=== PATIENT | male | born 1985 | race African-American/Black ===

== ENCOUNTER 2017-01-19 09:01 | Emergency (ER) | payer OTHER ==
[2017-01-19 09:46] LABS: ADD DIFF? NO; ADD MORPH? NO; ADD SCAN? NO; ATYPICAL LYMPHOCYTE FLAG 10 (0-99); FRAGMENT RBC FLAG 0 (0-99); HEMATOCRIT 47.3 % (40.0-51.0); HEMOGLOBIN 16.7 g/dL (13.7-17.5); LEFT SHIFT FLG 0 (0-99); LIPEMIA HEMOLYSIS FLAG 90 (0-99); MEAN CELL HEMOGLOBIN 28.5 pg (27.9-34.1); MEAN CELL HEMOGLOBIN CONCENTR. 35.3 g/dL (32.4-36.7); MEAN CELL VOLUME 80.9 fL (81.5-99.8); MEAN PLATELET VOLUME 8.8 fL (8.7-11.7); PLATELET CLUMPS FLAG 10 (0-99); PLATELET COUNT 228 10^3/uL (150-400); RED BLOOD CELL COUNT 5.85 10^6/uL (4.40-6.38); RED CELL DISTRIBUTION WIDTH 12.1 % (11.5-15.2)
[2017-01-19 10:09] LABS: ANION GAP 13 mEq/L (8-16); CALCIUM 9.9 mg/dL (8.5-10.4); CARBON DIOXIDE 26 mEq/l (22-31); CHLORIDE 104 mEq/L (97-110); CREATININE 1.1 mg/dL (0.7-1.3); ETHANOL SERUM < 10 mg/dL (0-10); GLOMERULAR FILTRATION RATE > 60; GLUCOSE 82 mg/dL (70-100); POTASSIUM 4.1 mEq/L (3.5-5.2); SODIUM 143 mEq/L (134-144)
[2017-01-19 10:18] VITALS: RESP 16; TEMP 97.9
--- NOTE | 2017-01-19 10:50 | EDPHY ---
H & P Smoking Status: Never smoked Time Seen by Provider: 01/19/17 10:47 HPI/ROS: HPI: 31-year-old male presents to emergency department with chief concern increased anxiety. Has a diagnosis of bipolar 2 disorder and only recently began taking his Lamictal, Risperdal, and Depakote as prescribed. Reports increased anxiety as a result of stressful family and life situations. He denies suicidal or homicidal ideation. He denies visual or auditory hallucination. He occasionally drinks alcohol but uses no other drugs. Denies fever, chills, shortness of breath, chest pain, nausea or vomiting. Has an appointment on Thursday with his psychologist Dr. Koo ROS:10 point review of systems is negative other than as stated in HPI (Griselda Zelaya) Past Medical/Surgical History: Bipolar 2 disorder (Griselda Zelaya) Constitutional: Initial Vital Signs Temperature (C) 36.4 C 01/19/17 09:04 Heart Rate 89 01/19/17 09:04 Respiratory Rate 18 01/19/17 09:04 Blood Pressure 128/90 H 01/19/17 09:04 O2 Sat (%) 99 01/19/17 09:04 O2 Delivery Mode Room Air Allergies/Adverse Reactions: No Known Allergies Allergy (Verified 01/19/17 09:07) Home Medications: Medication Instructions Recorded Divalproex [Depakote] 125 mg PO .DAILY 12/15/11 Lamictal 11/08/12 Risperdal 11/08/12 Lorazepam [Ativan] 1 mg PO BID PRN #4 tablet 01/19/17 Medical Decision Making ED Course/Re-evaluation: 31-year-old male who has no suicidal homicidal E ideation, and no visual or auditory hallucinations presents with increased anxiety. He has an appointment later this week with his psychologist. He is also in touch with his psychiatrist Dr. Velasco. He is comfortable following up as an outpatient. He agrees that the emergency department setting is making him more anxious, and he would prefer to follow up outpatient. There is no reason to keep him here for an evaluation in the emergency department. He is stable for discharge. ( Griselda Zelaya) Other Provider: The patient wasevaluatedand managed by themcolevel provider. My co- signature indicates that Marty reviewed this chart and I agree with the findings and plan of care asdocumented. I am the secondary supervising physician. (Kanika Maurer) - Data Points Laboratory Results: Laboratory Results 01/19/17 09:30 01/19/17 09:30 Departure - Departure Disposition: Home, Routine, Self-Care Clinical Impression: Anxiety Condition: Good Instructions: Anxiety (ED) Additional Instructions: Plan: Go to [facility] upon leaving the emergency department for evaluation for your anxiety Follow up with your therapist on Thursday as scheduled Take your medications as prescribed by your psychiatrist Call your psychiatrist Dr. Velasco and request a follow-up appointment this week If you developed any thoughts of hurting yourself or others or any other concerning symptoms please return promptly to emergency room as discussed May use 1 Ativan as needed for severe, debilitating anxiety--never drink, drive , or use other substances while taking this medication Referrals: Ciro Kay MD [Primary Care Provider] - As per Instructions Prescriptions: Lorazepam [Ativan] 1 mg PO BID PRN #4 tablet PRN Reason: severe anxiety
[2017-01-19 11:12] VITALS: BP 120/64; PULSE 65; O2SAT 96
== END 2017-01-19 11:12 | disposition home or self-care (01) ==
DX: F41.9 Anxiety disorder, unspecified (principal)
CPT/HCPCS: 80305; G0480